=== PATIENT | female | born 1955 | race Caucasian/White ===

== ENCOUNTER 2021-12-03 05:13 | Emergency (ER) | payer BC ==
[~2021-12-03] VITALS: Ht 172.7 cm; Wt 68.2 kg
[2021-12-03 06:20] VITALS: BP 114/78
== END 2021-12-03 06:20 | disposition home or self-care (01) ==
LOC: ED 05:13
DX: S61.411A Laceration without foreign body of right hand, initial encounter (principal); Z23 Encounter for immunization; W26.8XXA Contact with other sharp object(s), not elsewhere classified, initial encounter
CPT/HCPCS: 90715